=== PATIENT | male | born 1975 | race Caucasian/White ===

== ENCOUNTER 2022-11-24 18:21 | Observation (INO) | payer OTHER ==
--- OUTSIDE RECORDS SUMMARY | 2022-11-24 18:27 | XMS REPORT | Continuity of Care Document ---
:1975 Author Organization [facility] t Address [address] [place] [address] Care Team Providers Name Role Phone PCP, PATIENT DOES NOT HAVE A Primary Care Physician UnavailKevin Jackson Attending Clinician Unavailable RADIOLOGY Attending Clinician Unavailable Radiology Attending Clinician Unavailable Miki Gasca MD Attending Clinician STEFANIE ZAIDI DR [place] Attending Clinician Unavailable RUSSELL SELBY Attending Clinician Unavailable OSMEL MASON Admitting Clinician Unavailable STEFANIE ZAIDI DR [place] Admitting Clinician Unavailable RUSSELL SELBY Admitting Clinician Unavailable Payers Payer Name Policy Type Policy Number Effective Date Expiration Date S kelli CIGNA II [id number] 2021 00:00:00 CIGNA C1 [id number] 2015 [facility] - 00:00:00 [facility] Problems Condition Condition Condition Status Onset Resolution Last Treating Co mments Source Name Details Category Date Date Treatment Clinician Date 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 d [facility] [id number] GERD Problem Common without Spirit esophagiti - [facility] [id number] BPH loc w Problem Com mon urin Spirit obs/LUTS - [facility] Allergies, Adverse Reactions, Alerts Allergy Allergy Status Severity Reaction(s) Onset Inactive Treating Comm ents Source Name Type Date Date Clinician NO KNOWN Drug Active Univers ALLERGIE Class ity of [facility] Family History Family Member Diagnosis Comments Start Date Stop Date Source Natural father Heart attack [facility] Natural mother [facility] Social History Social Habit Start Date Stop Date Quantity Comments Source History of [facility] - Tobacco Use [facility] Exposure to 2022-08-04 2022-08-14 Not sure University of SARS-CoV-2 00:00:00 10:10:00 [facility] (event) [facility] Alcohol intake 2022-06-11 2022-06-11 Current drinker [facility] 00:00:00 00:00:00 of alcohol (finding) Tobacco use and 2019-04-22 2019-04-22 Smokeless tobacco [facility] exposure 00:00:00 00:00:00 non-user Sex Ass[birth year] At [birth year] [facility] 00:00:00 00:00:00 Smoking Status Start Date Stop Date Source Tobacco smoking consumption [facility] Never Smoker [facility] Medications Ordered Filled Start Stop Current Ordering Indication Dosage Frequency Signature Comments Components Source Medication Medication Date Date Medication? Clinician (SIG) Name Name iopamidol 2021- No [id number] 600mL 600 mL, Univers (ISOVUE 08-14 Oral, ity of 370-500 mL) 16:45: 16:45 [place] :[place] dose, On Medica l 600 mL Wed Branch 08/14/22 at 1145, Routine loratadine Yes 10mg QD Take 10 mg M ethodi (CLARITIN) 06-[address] 10 mg 11:54: daily. [facility]ospita tablet 13 l Claritin 10 Claritin 10 No 1{table QD Claritin MG MG t} 10 MG Ventolin Ventolin No 1{puff_ 6xD Ventolin HFA 108 (90 HFA 108 (90 as_need HFA 108 Base) Base) ed} (90 Base) MCG/ACT MCG/ACT MCG/ACT Claritin 10 Claritin 10 No 1{table QD Claritin MG MG t} 10 MG PriLOSEC PriLOSEC No QD PriLOSEC OTC 20 MG OTC 20 MG OTC 20 MG Claritin 10 Claritin 10 No 1{table QD Claritin MG MG t} 10 MG Ventolin Ventolin No 1{puff_ 6xD Ventolin HFA 108 (90 HFA 108 (90 as_need HFA 108 Base) Base) ed} (90 Base) MCG/ACT MCG/ACT MCG/ACT Claritin 10 Claritin 10 No 1{table QD Claritin MG MG t} 10 MG Ventolin Ventolin No 1{puff_ 6xD Ventolin HFA 108 (90 HFA 108 (90 as_need HFA 108 Base) Base) ed} (90 Base) MCG/ACT MCG/ACT MCG/ACT Claritin 10 Claritin 10 No 1{table QD Claritin MG MG t} 10 MG Ventolin Ventolin No 1{puff_ 6xD Ventolin HFA 108 (90 HFA 108 (90 as_need HFA 108 Base) Base) ed} (90 Base) MCG/ACT MCG/ACT MCG/ACT No Known No Known No Common Medications Medications S pirit - [facility] Prilosec Prilosec Yes Kevin 1 tablet C ommon OTC OTC Maynard 30 minutes Spirit before - [facility] morning [facility] Claritin Claritin Yes Kevin 1 tablet C ommon [place] [facility] - [facility] ZyrTEC ZyrTEC Yes Kevin not Common Maynard defined [facility] Claritin 10 Claritin 10 No 1{table QD Claritin MG MG t} 10 MG Ventolin Ventolin No 1{puff_ 6xD Ventolin HFA 108 (90 HFA 108 (90 as_need HFA 108 Base) Base) ed} (90 Base) MCG/ACT MCG/ACT MCG/ACT Ciprofloxac Ciprofloxac No 4{drops BID Ciprofloxa in-Dexameth in-Dexameth _into_a veronika-Dexame asone asone ffected thasone 0.3-0.1 % 0.3-0.1 % _ear} 0.3-0.1 % PriLOSEC PriLOSEC No QD PriLOSEC OTC 20 MG OTC 20 MG OTC 20 MG Ventolin Ventolin No 1{puff_ 6xD Ventolin HFA 108 (90 HFA 108 (90 as_need HFA 108 Base) Base) ed} (90 Base) MCG/ACT MCG/ACT MCG/ACT ZyrTEC ZyrTEC No ZyrTEC Vital Signs Vital Name Observation Time Observation Value Comments Source height 2022-10-31 15:30:00 71 [in_i] [facility] weight 2022-10-31 15:30:00 199 [lb_av] [facility] temperature 2022-10-31 15:30:00 97.6 [degF] [facility] bmi 2022-10-31 15:30:00 27.75 kg/m2 [facility] oximetry 2022-10-31 15:30:00 99 % [facility] respiratory rate 2022-10-31 15:30:00 18 /min Comm on [facility] blood pressure 2022-10-31 15:30:00 142 mm[Hg] [facility] - systolic [facility] blood pressure 2022-10-31 15:30:00 86 mm[Hg] Common [facility] - diastolic [facility] height 2022-08-07 10:50:00 71 [in_i] [facility] weight 2022-08-07 10:50:00 197.9 [lb_av] [facility] temperature 2022-08-07 10:50:00 98.1 [degF] [facility] bmi 2022-08-07 10:50:00 27.6 kg/m2 [facility] oximetry 2022-08-07 10:50:00 98 % [facility] respiratory rate 2022-08-07 10:50:00 18 /min Comm on [facility] blood pressure 2022-08-07 10:50:00 123 mm[Hg] [facility] - systolic [facility] blood pressure 2022-08-07 10:50:00 77 mm[Hg] [facility] - diastolic [facility] height 2022-07-03 15:00:00 71 [in_i] [facility] weight 2022-07-03 15:00:00 194 [lb_av] Common S pirit [facility] temperature 2022-07-03 15:00:00 97.9 [degF] Common S pirit [facility] bmi 2022-07-03 15:00:00 27.05 kg/m2 [facility] S [facility] oximetry 2022-07-03 15:00:00 98 % [facility] respiratory rate 2022-07-03 15:00:00 16 /min Comm on [facility] blood pressure 2022-07-03 15:00:00 116 mm[Hg] Common [facility] - systolic [facility] blood pressure 2022-07-03 15:00:00 74 mm[Hg] Common [facility] - diastolic [facility] height 2021-09-26 08:00:00 71 [in_i] Common S [facility] weight 2021-09-26 08:00:00 196 [lb_av] [facility] temperature 2021-09-26 08:00:00 98.6 [degF] Common S pirit [facility] bmi 2021-09-26 08:00:00 27.33 kg/m2 Common S [facility] oximetry 2021-09-26 08:00:00 98 % Common S pirit [facility] blood pressure 2021-09-26 08:00:00 118 mm[Hg] Common [facility] - systolic [facility] blood pressure 2021-09-26 08:00:00 81 mm[Hg] Common [facility] - diastolic [facility] Systolic blood 2022-06-11 16:53:00 100 mm[Hg] [facility] pressure Diastolic blood 2022-06-11 16:53:00 70 mm[Hg] [facility] pressure Heart rate 2022-06-11 16:53:00 59 /min [facility] Body temperature 2022-06-11 16:53:00 36.61 Rita Meth [facility] Body weight 2022-06-11 16:53:00 91.627 kg [facility] BMI 2022-06-11 16:53:00 28.17 kg/m2 [facility] Oxygen saturation in 2022-06-11 16:53:00 98 /min [facility] Arterial blood by Pulse oximetry Procedures Procedure Date / Time Performed Performing Clinician Jenn RANDALL SMALL BOWEL SERIES 2022-08-14 17:15:00 Requisition, Paper Uni [facility] Plan of Care Planned Activity Planned Date Details Comments Source Future Scheduled 2022-10-31 COVID-19 VACCINE (#1) [facility] Test 14:56:31 [code = COVID-19 VACCINE (#1)] Future Scheduled 2022-10-31 Hepatitis C screening [facility] Test 14:56:31 (procedure) [code = [id number]] Future Scheduled 2022-10-31 COLONOSCOPY SCREENING [facility] Test 14:56:31 [code = COLONOSCOPY SCREENING] Future Scheduled 2022-10-31 INFLUENZA VACCINE Method [facility] Test 14:56:31 [code = INFLUENZA VACCINE] Encounters Start End Encounter Admission Attending Care Care Encounter Source Date/Time Date/Time Type Type Clinicians Facility Department ID 2022-08-07 Outpatient Maynard, STLMLC STLC [id number] Common 09:23:01 [facility] 2022-07-08 Outpatient Maynard, STLMLC STLC [id number] Common 17:05:00 Kevin [facility] 2021-12-12 Outpatient Maynard, STLMLC STLMLC [id number] Common 14:11:11 Kevin [id number] [facility] 2021-12-12 Outpatient Maynard, STLMLC STLC [id number] Common 12:54:07 Kevin [id number] [facility] 2021-12-12 Outpatient Maynard, STLMLC STLMLC [id number] Common 12:42:24 Kevin [id number] [facility] 2021-12-12 Outpatient Maynard, STLMLC STLMLC [id number] Common 12:22:58 Kevin [id number] [facility] 2021-12-12 Outpatient Maynard, STLMLC STLMLC [id number] Common 11:52:38 Kevin [id number] [facility] 2021-12-12 Outpatient STLMLC STLMLC [id number] Common 11:14:39 [id number] [facility] 2022-10-31 2022-10-31 OFFICE STLMLC STLMLC [id number] Co mmon 00:00:00 00:00:00 VISIT NEW Spir it PT LEVEL 2 [facility] 2022-08-14 2022-08-14 Outpatient R RADIOLOGY [facility] [id number] Univers 10:12:13 23:59:00 ity of [facility] 2022-08-14 2022-08-14 Hospital Radiology UNIVERS[facility] [id number] Univers 10:12:13 23:59:00 Encounter Y HEALTH [id number] ity of [facility] 4.2.7.2.686 [place] [id number] [address] 2022-08-07 2022-08-07 OFFICE STLMLC STLMLC [id number] Co mmon 00:00:00 00:00:00 VISIT EST Spir it PT LEVEL 3 [facility] 2022-07-08 2022-07-08 (TEL) STLMLC STLMLC [id number] Co mmon 00:00:00 00:00:00 [facility] 2022-07-03 2022-07-03 OFFICE STLMLC STLMLC [id number] Co mmon 00:00:00 00:00:00 VISIT EST Spir it PT LEVEL 3 [facility] 2022-06-11 2022-06-11 Office Vickey, [id number] Miguel 11:45:00 12:37:12 Visit Miki [place] [id number] 109 s t 3.430.2.7 Hospit a .[id number] l .8 2022-06-11 2022-06-11 Travel 1.2.840.1 [id number] [facility] 00:00:00 00:00:[id number] 3.430.2.7 0.2.7.3.698 Ho spita .[id number] 084.8 l .8 2022-06-11 2022-06-11 Outpatient VICKEY, [facility] [id number] [place] 00:00:00 00:00:[address] 2021-09-26 2021-09-26 OFFICE STLMLC STLMLC [id number] Co mmon 00:00:00 00:00:00 VISIT [facility] PT LEVEL 2 [facility] 2021-09-03 2021-09-03 (TEL) STLMLC STLMLC [id number] Co mmon 00:00:00 00:00:00 [facility] 2021-06-06 2021-06-06 Outpatient STLMLC STLMLC [id number] Common 00:00:00 00:00:00 [facility] 2021-06-04 2021-06-04 Outpatient STLMLC STLMLC [id number] Common 00:00:00 00:00:00 [facility] 2021-06-04 2021-06-04 Outpatient STLMLC STLMLC [id number] Common 00:00:00 00:00:00 [facility] 2021-04-25 2021-04-25 Outpatient VICKEY [facility] [id number] [place] 00:00:00 00:00:[address] MIKI [address] 2021-03-07 2021-03-07 Outpatient STLMLC STLMLC [id number] Common 00:00:00 00:00:00 [facility] 2021-02-05 2021-02-05 Outpatient STLMLC STLMLC [id number] Common 00:00:00 00:00:00 [facility] 2020-12-06 2020-12-06 Outpatient STLMLC STLMLC [id number] Common 00:00:00 00:00:00 [facility] 2020-08-30 2020-08-30 Outpatient STLMLC STLMLC [id number] Common 00:00:00 00:00:00 [facility] 2020-04-26 2020-04-26 Outpatient VICKEY [facility] [id number] [place] 00:00:00 00:00:00 KIRTAN 091 Method i 2020-03-14 2020-03-14 [facility] [id number] Common 11:42:00 11:42:[address] [facility] 2020-03-14 2020-03-14 Out[facility] [id number] Common 10:00:00 10:00:[address] [facility] 2020-02-03 2020-02-03 Out[facility] [id number] Common 08:00:00 08:00:[address] [facility] 2018-11-13 2019-01-03 Outpatient C SPECK, III, [facility] PT [id number] [place] 12:02:00 23:59:00 [facility] [place] 2018-11-13 2018-11-13 Outpatient C SPECK, III, [facility] RAD [id number] [place] 10:12:00 23:59:00 [facility] [place] 2018-10-22 2018-10-22 Outpatient C SPECK, III, [facility] RAD [id number] [place] 10:04:00 23:59:00 [facility] [place] 2018-09-23 2018-09-23 Outpatient C SPECK, III, [facility] RAD [id number] [place] 13:40:00 23:59:00 [facility] [place] Results Test Description Test Time Test Comments Results Result Sour e Comments XR HAND RIGHT 2018-11-13 Right hand, 3 COMPLETE *NT* 11:05:08 viewsLocation code: [id number] HISTORY: Closed fracture of neck of fifth metacarpal bone of righthandComparison: 10/22/2018COMMENTS: AP, lateral, and oblique views of the right hand demonstrateprogressive sclerosis and periosteal new bone spanning the 5th metacarpal neckfracture. Mild volar angulation is stable. The soft tissues are unremarkable.IMPRESSIO N: Continued healing changes of right 5th metacarpal fracture instable alignment. XR HAND RIGHT 2018-10-22 Right hand, 3 COMPLETE *NT* 10:39:29 viewsLocation code: [id number] HISTORY: Fracture of neck of fifth metacarpalComparison: 09/23/2018COMMENTS: AP, lateral, and oblique views of the right hand were obtained. Thereis progressive sclerosis and callus formation at the previous noted 5thmetacarpal neck fracture. Mild volar angulation remains. The soft tissues areunremarkable.IMPRES SUNSHINE: Healing right 5th metacarpal neck fracture. XR HAND RIGHT 2018-09-23 Right hand, 3 COMPLETE *NT* 15:07:47 viewsLocation code: [id number] HISTORY: [id number]: Pain in right handCOMMENTS: AP, lateral, and oblique views of the right hand demonstrates mildlyangulated and partially comminuted fracture of the distal fifth metacarpalshaft extending into the neck and head anterior angulation.Impression: 1. Distal fifth metacarpal fracture as detailed above. CT CALCIUM SCORING 2017-05-[address] without WITHOUT CONTRAST 11:39:26 contrast, Coronary calcium scoringLocation Code: [id number] history: Coronary artery disease screeningTechnique: Cardiac-gated, helical CT of the heart was performed withoutcontrast. Coronary calcium scores were calculated on a separate workstation.Total DLP: 273 mGycmFindings:Agatston scoresLeft main: 0.00Left anterior descendin.00Left circumflex: 0.00Right coronary artery: 0.00Total Agatston score: 0.00Coronary calcium volume: 0.00Extracardiac findings: NoneImpression: Normal exam with no identifiable calcified atherosclerotic plaque.
[2022-11-24] MEDS ORDERED: ONDANSETRON 4 MG/2 ML VIAL IV PRN (20:13)
[2022-11-24] MEDS ORDERED: MORPHINE 2 MG/ML SYR IV PRN (20:15)
[2022-11-24] MEDS ORDERED: MELATONIN 5 MG TABLET PO PRN (20:15)
--- NOTE | 2022-11-24 20:21 | P.HP ---
Certification for Inpatient Patient admitted to: Observation With expected LOS: <2 Midnights Patient will require the following post-hospital care: None Practitioner: I am a practitioner with admitting privileges, knowledge of patient current condition, hospital course, and medical plan of care. Services: Services provided to patient in accordance with Admission requirements found in Title 42 Section 412.3 of the Code of Federal Regulations Patient History Date of Service: 11/24/22 Reason for admission: Chest pain History of Present Illness: 47-year-old male with history of anxiety presented to outside hospital emergency department by EMS with complaints of chest pain. He was driving back from [place] when he began to develop left-sided chest pain radiating to left side of his neck with paresthesias in his hands, nausea and diaphoresis. He was evaluated at outside hospital emergency department, EKG without STEMI criteria, first 2 high-sensitivity troponin is negative, chest x-ray with no evidence of acute process within the chest. His first high-sensitivity troponin performed on 11/24/2022 at 1143 was 4.3-second troponin performed on 11/24/2022 at 1352 was 4.2 BNP was 7.6 other labs were unremarkable. Patient reports that he follows with Dr. Stoddard and he had an echo performed around July of last year, patient reports he was told his EF was around 49% and that they plan to do a stress test at some point in the future but this has not been done yet. He was transferred to our facility for further evaluation from cardiology. Allergies No Known Allergies Allergy (Unverified 11/24/22 18:36) - Past Medical/Surgical History -: Anxiety -: None Psychosocial/ Personal History: Patient lives at home with his - Family History Father -: Heart disease - Social History Smoking Status: Never smoker Alcohol use: No CD- Drugs: No Caffeine use: Yes Place of Residence: Home Review of Systems 10-point ROS is otherwise unremarkable Cardiovascular: Chest Pain Physical Examination - Physical Exam General: Alert, In no apparent distress, Oriented x3 HEENT: Atraumatic, PERRLA, Mucous membr. moist/pink, EOMI, Sclerae nonicteric Neck: Supple, 2+ carotid pulse no bruit, No LAD, Without JVD or thyroid abnormality Respiratory: Clear to auscultation bilaterally, Normal air movement Cardiovascular: Regular rate/rhythm, Normal S1 S2 Capillary refill: <2 Seconds Gastrointestinal: Normal bowel sounds, No tenderness Musculoskeletal: No tenderness Integumentary: No rashes Neurological: Normal speech, Normal strength at 5/5 x4 extr, Normal tone, Normal affect Assessment and Plan - Plan Assessment: Chest pain rule out ACS Anxiety Plan: Chest pain rule out ACS: High sensitive troponin negative x2 thus far, will obtain third troponin. Cardiology to be consulted, echocardiogram ordered as requested by cardiology. Continue aspirin, statin. Lipid panel in the morning. We will also obtain D-dimer to rule out PE given recent travel. Appreciate further input from cardiology. Anxiety: Continue home medication. DVT PPX: Lovenox Code status: Full Discharge Plan: Home Plan to discharge in: 24 Hours - Advance Directives Does patient have a Living Will: No Does patient have a Durable POA for Healthcare: No - Code Status/Comfort Care Code Status Assessed: Yes (Full code) Critical Care: No Time Spent Managing Pts Care (In Minutes): 55
[2022-11-24] MEDS: ATORVASTATIN 40 MG TAB PO SCH (21:49)
[2022-11-24 22:21] VITALS: BMI 26.4
[2022-11-25 03:40] LABS: Absolute Lymphocytes (CBC) 2.2 K/uL (0.7-4.9); Lymphocytes % 31.4 % (15.3-44.8); MCV 90.7 fL (80-100); MPV 9.6 fL (7.6-11.3); RBC Red Blood Cell Count 4.52 M/uL (4.33-5.43)
[2022-11-25 04:10] LABS: Albumin 3.2 g/dL (3.4-5.0); Bilirubin Total 0.4 mg/dL (0.2-1.0); Potassium 3.8 mmol/L (3.5-5.1); Protein, Total 6.4 g/dL (6.4-8.2); Thyroid Stimulating Hormone 0.628 uIU/mL (0.358-3.740); Troponin High Sensitivity 5.2 pg/mL (<58.9)
[2022-11-25] MEDS: ASPIRIN EC 81 MG TAB PO SCH (08:05)
[2022-11-25] MEDS ORDERED: ENOXAPARIN 40 MG/0.4 ML SQ SCH (09:00)
[2022-11-25 14:41] LABS: Protime INR 1.04
--- NOTE | 2022-11-25 17:56 | P.PN ---
Date of Service: 11/25/22 Subjective: no acute events overnight continues with persistent left sided chest pain nothing in particular worsens it ROS: 10 point ROS as noted above, otherwise negative Physical exam GEN: Alert, oriented, NAD HEENT: Normal conjunctiva, sclera anicteric CV: Regular rate and rhythm, no edema Pulm: Nonlabored respirations on room air ABD: Soft, nontender, nondistended MSK: tenderness to palpation of left chest / pectoralis muscle Integumentary: No rashes Neuro: Normal speech, normal affect Problem List Chest pain rule out ACS Anxiety trop neg x2 echo ordered cardiology consulted concern for ACS plan for cath tomorrow aspirin,statin lovenox d-dimer negative thyroid normal possible MSK etiology given tenderness on exam VTE: lovenox Code: full Dispo: home, ~1 day
--- NOTE | 2022-11-25 19:55 | CON ---
Date of Consultation: 11/25/2022 Reason For Consultation: Chest pain. History Of Present Illness: A 47-year-old male, history of has been having chest pain for the past 2 months on and off and related to exertion. He was driving back from [place] where he started having pressure-like chest pain, radiating to the left upper extremity, with nausea and diaphoresis. I was called from an emergency room locally there and the patient was transferred for further management. I saw him at bedside. He is chest-pain free this morning. He appears anxious about his condition. Past Medical History: Anxiety. Medications: Refer to reconciliation sheet for detailed list. Allergies: NO KNOWN DRUG ALLERGIES. Family History: No premature coronary artery disease or cancer. Social History: He does not smoke or drink. Does not use any drugs. Review of Systems: All systems reviewed are negative except what is mentioned in the HPI. Physical Examination: Vital Signs: Reviewed. Temperature is 98.2, pulse 61, breathing 16, blood pressure 127/75, and satu rating 99% on room air. General: Pleasant middle-aged male, in no apparent distress. Head and Neck: Pupils are equal, reactive to light. Intact eye movements. No JVD. No cervical lym phadenopathy. Neck is supple. Thyroid is not enlarged. Lungs: Clear to auscultation bilaterally. No rhonchi, wheezing, or crackles. No accessory muscle u se. Heart: Regular rate and rhythm. No extra sounds. Abdomen: Soft, nontender. Bowel sounds positive. No organomegaly. No masses or hernia. No rigidi ty or rebound. Extremities: No edema, clubbing, or cyanosis. Intact pulses. Skin: No rash noted. Neurologic: Alert, awake, and oriented x3. No acute focal deficits appreciated. Lymph Nodes: No cervical or axillary lymphadenopathy. Investigations: Troponins x2 were negative. BUN is 11, creatinine 0.91. Hemoglobin is 14.1. Assessment/recommendation: 1.Chest pain, very frequent, getting more frequent lately, suggestive for possible unstable angina. He is chest-pain free now. If pain happens again, then, use nitroglycerin patch and continue aspiri n. Keep him n.p.o. past midnight for a coronary angiogram tomorrow morning. 2.Dyslipidemia. Continue statin. SR/MODL Voice ID: [id number] Report ID: [id number]
[2022-11-25] MEDS: ATORVASTATIN 40 MG TAB PO SCH (21:02)
[2022-11-26 04:13] LABS: Absolute Lymphocytes (CBC) 1.7 K/uL (0.7-4.9); Hematocrit 41.9 % (39.6-49.0); Lymphocytes % 30.1 % (15.3-44.8); MCV 90.4 fL (80-100); MPV 9.5 fL (7.6-11.3); RBC Red Blood Cell Count 4.63 M/uL (4.33-5.43)
[2022-11-26 04:24] LABS: Albumin 3.4 g/dL (3.4-5.0); Bilirubin Total 0.4 mg/dL (0.2-1.0); Potassium 3.9 mmol/L (3.5-5.1); Protein, Total 6.3 g/dL (6.4-8.2)
--- NOTE | 2022-11-26 06:48 | ECHO ---
HEIGHT: 5 ft 11 in WEIGHT: 190 lb 0 oz DATE OF STUDY: 11/25/[address]: Rich Sol NP 2-DIMENSIONAL: YES M.MODE: YES DOPPLER: YES COLOR FLOW: YES TDS: PORTABLE: YES DEFINITY: BUBBLE STUDY: DIAGNOSIS: CHEST PAIN CARDIAC HISTORY: CATHERIZATION: NO SURGERY: NO PROSTHETIC VALVE: NO PACEMAKER: NO MEASUREMENTS (cm) DIASTOLIC (NORMALS) SYSTOLIC (NORMALS) IVSd 0.9 (0.6-1.2) LA Diam 2.6 (1.9-4.0) LVEF 71% LVIDd 4.7 (3.5-5.7) LVIDs 2.8 (2.0-3.5) %FS 40% LVPWd 1.0 (0.6-1.2) Ao Diam 3.0 (2.0-3.7) 2 DIMENSIONAL ASSESSMENT: RIGHT ATRIUM: NORMAL LEFT ATRIUM: NORMAL RIGHT VENTRICLE: NORMAL LEFT VENTRICLE: NORMAL TRICUSPID VALVE: MILD TRICUSPID REGURGITATION MITRAL VALVE: MILD MITRAL REGURGITATION PULMONIC VALVE: NORMAL AORTIC VALVE: NORMAL PERICARDIAL EFFUSION: NONE AORTIC ROOT: NORMAL LEFT VENTRICULAR WALL MOTION: NORMAL DOPPLER/COLOR FLOW: SEE BELOW COMMENTS: 1. NORMAL LEFT VENTRICULAR EJECTION FRACTION 60-65% 2. NORMAL WALL MOTION 3. TRACE MITRAL REGURGITATION 4. MILD TRICUSPID REGURGITATION 5. NORMAL DIASTOLIC FUNCTION TECHNOLOGIST: ANCELMO WHIPPLE
[2022-11-26] MEDS: ASPIRIN EC 81 MG TAB PO SCH (08:52)
[2022-11-26] MEDS ORDERED: LIDOCAINE 1% MPF 30 ML VIAL ONE (11:07)
[2022-11-26] MEDS ORDERED: HEPA 1000U/500MLS 2,000 UNIT/1,000 ML BAG IV ONE (11:07)
[2022-11-26] MEDS ORDERED: FENTANYL CITR 100 MCG/2 ML ONE ×2 (12:13→12:15)
[2022-11-26] MEDS ORDERED: NITROGLYCERIN 100 MCG/ML SYR (for cath lab use only) IV ONE (12:14)
[2022-11-26] MEDS ORDERED: VERAPAMIL HCL 10 MG/4 ML VIAL IV ONE (12:14)
[2022-11-26] MEDS ORDERED: MIDAZOLAM HCL 2 MG/2 ML INJ ONE ×2 (12:14→13:00)
[2022-11-26] MEDS ORDERED: NA CHLORIDE 0.9% 500 ML ONE (12:14)
[2022-11-26] MEDS ORDERED: ATROPINE SULF 1 MG/10 ML SYR IV ONE ×2 (12:15→13:43)
[2022-11-26] MEDS ORDERED: HEPARIN 5000 UNIT/ML 1 ML VIAL ONE (12:15)
[2022-11-26] MEDS ORDERED: NITROGLYCERIN/D5W 25 MG/250 ML BTL IV ONE (12:16)
[2022-11-26] MEDS ORDERED: TICAGRELOR 90 MG TABLET PO ONE (13:01)
[2022-11-26] MEDS ORDERED: ASPIRIN 325 MG TAB ONE (13:01)
[2022-11-26] MEDS ORDERED: HEPARIN 10,000 UNIT/10 ML VIAL IV ONE (13:01)
[2022-11-26] MEDS ORDERED: CLOPIDOGREL 75 MG TABLET ONE (13:01)
[2022-11-26] MEDS ORDERED: Phenylephrine HCl 50 MG in D5W 245 ML IV PRN (13:31)
[2022-11-26] MEDS ORDERED: EPINEPHrine 1 MG/10 ML SYR ONE ×2 (13:34→13:43)
[2022-11-26] MEDS ORDERED: ONDANSETRON 4 MG/2 ML VIAL ONE (13:35)
[2022-11-26] MEDS ORDERED: METOPROLOL TARTRATE 5 MG/5 ML INJ IV ONE ×2 (13:36→13:38)
[2022-11-26] MEDS ORDERED: Phenylephrine HCl 10 MG/ML 1 ML VIAL ONE (14:13)
--- NOTE | 2022-11-26 15:22 | PN ---
Date of Progress Note: 11/26/2022 Subjective: Seen by bedside. He is doing clinically well, status post coronary angiogram. No coron sandra artery disease was found. Review of Systems: There is no chest pain, shortness of breath, orthopnea, cough. No nausea, vomiting, diarrhea. All o ther systems reviewed and they were negative. Physical Examination: Vital Signs: Reviewed. Head and Neck: Pupils are equal, reactive to light. Intact eye movements. No JVD. No cervical lym phadenopathy. Neck is supple. Thyroid is not enlarged. Lungs: Clear to auscultation bilaterally. No rhonchi, wheezing, or crackles. No accessory muscle u se. Heart: Regular rate and rhythm. No extra sounds. Abdomen: Soft, nontender. Bowel sounds positive. No organomegaly. No masses or hernia. No rigidi ty or rebound. Extremities: No edema, clubbing, or cyanosis. Intact pulses. Skin: No rash. Neurologic: Alert, awake, oriented x3. No acute focal deficits appreciated. Lymph Nodes: No cervical or axillary lymphadenopathy. Investigations: BUN 13, creatinine 0.88, hemoglobin 14.4. Assessment And Recommendations: Chest pain. Cardiac enzymes are negative. Coronary angiogram is ne gative for any disease to evaluate and look for other causes of chest pain. D-dimer was negative. R ule out pulmonary embolism. From Cardiology standpoint, the patient can be released and follow up as an outpatient. /JAY Voice ID: [id number] Report ID: [id number]
[2022-11-26 16:11] VITALS: TEMP 97; O2SAT 98
--- NOTE | 2022-11-26 16:19 | OP ---
Date of Procedure: 11/26/2022 Surgeon: OLIVIA COLLINS Procedures Performed: 1.Selective coronary angiogram. 2.Left heart catheterization. Indication: Unstable angina. Access: Right radial artery 6-Angolan closed with TR band. Complications: None. Bleeding: Less than 10 mL. Description Of Procedure: After risks, benefits, and alternatives were explained, the patient agreed to procedure and signed informed consent. The patient was brought into the cardiac catheterization laboratory, prepped and draped in usual sterile fashion. Then, I accessed right radial artery using pediatric micropuncture kit and placed a 6-Angolan Slender sheath and then I took 5-Angolan [place] 4.0 c atheter into the aortic root, engaged the left main, and took standard views and engaged the RCA. Af ter taken 2 views, the patient went into severe bradycardia episode, which was likely vasovagal and b lood pressure dropped, responded to atropine very well. Then, catheter was pushed over the wire into the LV, measured LVEDP and pullback did not recorded gradient. Catheter was removed, sheath was rem [place], and placed TR band with good hemostasis. Findings: 1.Left main; large and normal. 2.LAD; large and normal. Normal diagonal branches. 3.Left circumflex is codominant circulation, large and normal. 4.RCA; codominant circulation, large and normal. 5.Normal LVEDP at 5 mmHg. Conclusion: 1.Normal coronary arteries. 2.Normal LVEDP. Recommendation: Medical management and search for other causes of chest pain. The patient can be re leased from Cardiology standpoint. SR/MODL Voice ID: [id number] Report ID: [id number]
[2022-11-26 16:39] VITALS: BP 104/79
--- NOTE | 2022-11-26 17:25 | P.DS ---
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 He was driving back from [place] when he began to develop left-sided chest pain radiating to left side of his neck with paresthesias in his hands, nausea and diaphoresis. He was evaluated at outside hospital emergency department, EKG without STEMI criteria, first 2 high-sensitivity troponin is negative, chest x-ray with no evidence of acute process within the chest. His first high-sensitivity troponin performed on 11/24/2022 at 1143 was 4.3-second troponin performed on 11/24/2022 at 1352 was 4.2 BNP was 7.6 other labs were unremarkable. Patient stated that he follows [facility] Dr. Stoddard and he had an echo performed around July of last year, Patient reported he was told his EF was around 49% and that they plan to do a stress test at some point in the future but this has not been done yet. He was transferred to our facility for further evaluation from cardiology. Hospital Course: Patient placed under observation on the medical floor. Troponin trended negative. He was started on aspirin and statin He was seen in consultation by cardiology Dr. Stoddard who performed cardiac catheterization. Patient noted to have normal coronary arteries. He is deemed stable for discharge by cardiology Patient discharged with daily aspirin and low-dose Lipitor. Vital Signs/Physical Exam: Temp Pulse Resp BP Pulse Ox 97 F 64 16 104/79 95 11/26/22 16:05 11/26/22 16:35 11/26/22 16:35 11/26/22 16:35 11/26/22 12:00 General: Alert, In no apparent distress, Oriented x3 HEENT: Mucous membr. moist/pink Neck: JVD not distended Respiratory: Clear to auscultation bilaterally, Normal air movement Cardiovascular: No edema, Regular rate/rhythm, Normal S1 S2 Gastrointestinal: Soft and benign, Non-distended Musculoskeletal: No swelling Integumentary: No rashes Neurological: Normal strength at 5/5 x4 extr Laboratory Data at Discharge: WBC 5.70 K/uL (4.3-10.9) 11/26/22 03:34 Hgb 14.4 g/dL (13.6-17.9) 11/26/22 03:34 Hct 41.9 % (39.6-49.0) 11/26/22 03:34 Plt Count 179 K/uL (152-406) 11/26/22 03:34 PT 11.4 SECONDS (9.5-12.5) 11/25/22 14:14 INR 1.04 11/25/22 14:14 APTT 30.5 SECONDS (24.3-36.9) 11/25/22 14:14 Sodium 140 mmol/L (136-145) 11/26/22 03:34 Potassium 3.9 mmol/L (3.5-5.1) 11/26/22 03:34 BUN 13 mg/dL (7-18) 11/26/22 03:34 Creatinine 0.88 mg/dL (0.70-1.30) 11/26/22 03:34 Glucose 121 mg/dL (74-106) H 11/26/22 03:34 Total Bilirubin 0.4 mg/dL (0.2-1.0) 11/26/22 03:34 AST 12 U/L (15-37) L 11/26/22 03:34 ALT 25 U/L (16-61) 11/26/22 03:34 Alkaline Phosphatase 54 U/L (45-117) 11/26/22 03:34 Triglycerides 124 mg/dL (<150) 11/25/22 03:10 Cholesterol 166 mg/dL (<200) 11/25/22 03:10 HDL Cholesterol 61 mg/dL (40-60) H 11/25/22 03:10 Cholesterol/HDL Ratio 2.72 11/25/22 03:10 Home Medications: Sertraline [Zoloft*] 50 mg PO DAILY 11/24/22 Aspirin [Aspirin EC 81 MG] 81 mg PO DAILY #30 tab 11/26/22 Atorvastatin Calcium [Lipitor] 20 mg PO BEDTIME #30 tab 11/26/22 New Medications: Aspirin [Aspirin EC 81 MG] 81 mg PO DAILY #30 tab Atorvastatin Calcium [Lipitor] 20 mg PO BEDTIME #30 tab Diet: AHA Activity: Ad amanda Followup: Kevin Maynard, [Primary Care Provider] - 1-2 Weeks
[2022-11-27] MEDS ORDERED: SERTRALINE HCL 50 MG TAB PO SCH (09:00)
== END 2022-11-26 18:01 | disposition home or self-care (01) ==
LOC: INTOOBSV 18:21 → 4TH 18:21
PROVIDERS: ADMIT Hospitalist; ATTEND Internal Medicine
DX: R07.9 Chest pain, unspecified (principal); F41.9 Anxiety disorder, unspecified; R00.1 Bradycardia, unspecified; E78.5 Hyperlipidemia, unspecified; R20.2 Paresthesia of skin; R11.0 Nausea; Z82.49 Family history of ischemic heart disease and other diseases of the circulatory system
CPT/HCPCS: 93306; 85025 ×2; 36415 ×2; 85610; 80061; 85379; 85730; 84443; 84484 ×2; 84439; 80053 ×2; 93458; G0379; C1893; Q9966; J2370 ×2; J2001; J1644 ×2; J0461; J2250; J3010 ×2; J0171; G0378 ×4; J7060; J7040; J2405